=== PATIENT | female | born 1985 | race Two or more races ===

== ENCOUNTER 2017-11-20 10:41 | Emergency (ER) | payer SELFPAY ==
[~2017-11-20 10:41] MED LIST: ACET-1311 PO; IBUP-1050 PO; NORG1TAB68 PO
[2017-11-20 10:45] VITALS: BP 108/69; PULSE 79; TEMP 36.6; O2SAT 98
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
== END 2017-11-20 11:46 | disposition home or self-care (01) ==
LOC: C.EDB 10:43 → C.EDD 11:46
DX: S01.81XD Laceration without foreign body of other part of head, subsequent encounter (principal); X58.XXXD Exposure to other specified factors, subsequent encounter

== ENCOUNTER 2024-01-12 07:43 | Inpatient (IN) ==
[2024-01-12] MEDS ORDERED: OXYTOCIN 30 UNITS/NSS 30 UNITS/500 ML BAG IV PRN (08:11)
[2024-01-12] MEDS ORDERED: LIDOCAINE 1% LOCAL 20 ML VIAL INFIL PRN (08:11)
[2024-01-12] MEDS ORDERED: CALCIUM CARBONATE 500 MG CHEWABLE TAB PO PRN (08:11)
--- NOTE | 2024-01-12 08:18 | History & Physical Report ---
Date of Service January 12, 2024 Assessment & Plan (1) Encounter for induction of labor: Plan: Pitocin Sanz: AROM when indicated Monitor tracing: Admission and Anticipated Discharge Date Admission Date: January 12, 2024 History of Present Illness Chief Complaint: induction of labor Primary Care Provider: [facility] Patient is a 38yo G_P_ at _w_d admitted for IOL. States her has been uneventful Denies any complications with prior pregnancies or deliveries. No significant past medical or surgical history. Denies any recent fever, body aches, chills, headache, dizziness, n/v/d, SOB, chest pain, abdominal pain, vaginal bleeding, numbness/tingling, or pain/swelling of lower extremities. GBS-, RH+ Allergies Allergy/AdvReac Type Severity Reaction Status Date / Time No Known Allergies Allergy NONE Verified 01/11/24 14:48 Home Medications Medication Instructions Recorded Confirmed Type calcium 600 mg (as 1 cap PO DAILY 05/27/23 01/11/24 History carbonate)-vitamin D3 10 mcg (400 unit) capsule bsjhedes-cyh-Op-FA PO 05/29/23 01/11/24 History [] Patient History Medical History Varicella vaccine Constipation Family History Denies family history of Ovarian cancer Prostate cancer Breast cancer Colorectal cancer Social History Smoking Status: Never smoker Second Hand Exposure: No; Do You Dip or Chew Tobacco: No; Hx Alcohol Use: No Hx Substance Use: No Preferred Language: Rwandan Communication Tools: IPad marital status: marital status details: Emery Reyes [phone] Current Living Situation: Spouse and Family Current Living Situation Comment: Lives with , 2 kids, no pets. current occupational status: unemployed Feels Safe at Home: Yes Review of Systems per HPI Physical Exam Physical Exam: General: Skin: HEENT: Heart: Lungs: Abd: Cervical: Ext: Neuro: : Results & Data Vital Signs (Past 12 Hours) Vital Signs Pulse BP 01/12/24 08:05 68 148/90 H
--- NOTE | 2024-01-12 08:26 | History & Physical Report ---
Date of Service January 12, 2024 Assessment & Plan (1) Encounter for induction of labor: (2) 40 weeks gestation of : Plan admit for iol. fetus category one. anticipate . pitocin, arom when indicated, epidural on demand. Admission and Anticipated Discharge Date Admission Date: January 12, 2024 History of Present Illness Chief Complaint: iol Primary Care Provider: [facility] Patient is a 38yohf with iup at 40 1/7 who presents to labor and delivery for iol for postdates. Notes +fm. Occasional contractions. no lof/vb. and Delivery Plans AMA weekly NSTs @ 36 weeks Needs business and marketing teacher. OB Labs: Blood Type O Positive 06/04/23 Antibody Screen NEGATIVE 06/04/23 Hgb 11.3 g/dl (12.0-16.0) L 10/29/23 Hct 33.3 % (37.0-47.0) L 10/29/23 MCV 86.3 fL (80.0-100.0) 10/29/23 Plt Count 167 K/uL (130-400) 10/29/23 Rubella IgG Antibody Immune (Immune) 06/04/23 RPR Nonreactive (Nonreactive) 06/04/23 Hep Bs Antigen NON-REACTIVE (NON-REACTIVE) 06/04/23 Hepatitis C Ab (EIA) NON-REACTIVE (NON-REACTIVE) 06/04/23 HIV (1&2) Ag & Ab Conf NON-REACTIVE (NON-REACTIVE) 06/04/23 Glucose 1 Hr 50 gm 123 mg/dl (70-130) 10/12/23 OB Optional Labs: Chlamydia trachomatis RNA Not Detected (NotDetected) 06/04/23 Neisseria gonorrhoeae RNA Not Detected (NotDetected) 06/04/23 Labs Reviewed: Declines genetics--mln gbs neg Allergies Allergy/AdvReac Type Severity Reaction Status Date / Time No Known Allergies Allergy NONE Verified 01/11/24 14:48 Home Medications Medication Instructions Recorded Confirmed Type calcium 600 mg (as 1 cap PO DAILY 05/27/23 01/11/24 History carbonate)-vitamin D3 10 mcg (400 unit) capsule ivigsqgq-kbm-Nq-FA PO 05/29/23 01/11/24 History [] Patient History Medical History Varicella vaccine Constipation Family History Denies family history of Ovarian cancer Prostate cancer Breast cancer Colorectal cancer Social History Smoking Status: Never smoker Second Hand Exposure: No; Do You Dip or Chew Tobacco: No; Hx Alcohol Use: No Hx Substance Use: No Preferred Language: [place] Communication Tools: IPad marital status: marital status details: Emery Reyes [phone] Current Living Situation: Spouse and Family Current Living Situation Comment: Lives with , 2 kids, no pets. current occupational status: unemployed Feels Safe at Home: Yes OB History Past Pregnancies Del. Date GA wks Lbr Lgth wt Sex Type del Anes Place Del Prov ? Comment 04/04/05 40 M Other [place] 07/24/08 40 M [facility] [employer] History noncontributory Physical Exam Constitutional: WD/WN, vitals as above Gastrointestinal (Abdomen): soft, gravid, nt Psychiatric: A+Ox3, euthymic affect Genitourinary: cx--4/75/-2/soft/mid toco--occasional contraction efm--130s with mod variability, small accels , no decels. Results & Data Vital Signs (Past 12 Hours) Vital Signs Pulse BP 01/12/24 08:05 68 148/90 H Coding Level of Care Code None Diagnoses Encounter for induction of labor Z34.90 40 weeks gestation of Z3A.40
[2024-01-12] MEDS: OXYTOCIN 30 UNITS/NSS 30 UNITS/500 ML BAG IV PRN ×2 (09:00→17:55)
[2024-01-12 09:22] LABS: Hematocrit (blood only) 36.7 % (37.0-47.0); Hemoglobin 12.8 g/dl (12.0-16.0); Mean Platelet Volume 13.3 fL (9.4-12.4); Platelet Count 115 K/uL (130-400)
[2024-01-12 09:23] LABS: Mean Corpuscular Hgb Conc 34.9 g/dL (32.0-36.0); Mean Corpuscular Volume 83.2 fL (80.0-100.0); RDW Coefficient of Variation 14.5 % (11.5-14.5); RDW Standard Deviation 42.6 fL (36.4-46.3); Red Blood Count 4.41 M/uL (4.20-5.40)
[2024-01-12 09:31] LABS: White Blood Count 5.27 K/ul (4.8-10.8)
--- NOTE | 2024-01-12 10:11 | Communication Note ---
Date of Service: January 12, 2024 Nursing made me aware of mildly elevated blood pressures. No s/s of pet. Check cmp and monitor closely.
[2024-01-12 10:38] LABS: Albumin Level 3.2 gm/dl (3.4-5.0); Bilirubin,Total 0.4 mg/dl (0.2-1.0); Calcium 8.6 mg/dl (8.6-10.3); Potassium 3.4 mmol/L (3.5-5.1)
[2024-01-12 10:44] LABS: Albumin Globulin Ratio 1.2 (0.9-2); BUN Creatinine Ratio 14.1 (10-20); Creatinine Clr Calc Pharmacy 114.1 ml/min; Globulin 2.6 gm/dl (2.5-4.0); Total Protein 5.8 gm/dl (6.0-8.3)
[2024-01-12] MEDS: LACTATED RINGER'S 1,000 ML IV PRN (11:15)
[2024-01-12] MEDS ORDERED: NALBUPHINE HCL INJ 10 MG/ML AMP IV PRN (11:24)
[2024-01-12] MEDS ORDERED: LIDOCAINE 2% MPF LOCAL 5 ML VIAL EPI PRN (11:24)
[2024-01-12] MEDS ORDERED: fentANYL 2 MCG/ML BUPIVacaine 0.125%-NSS 100ML BAG EPI PRN (11:24)
[2024-01-12] MEDS ORDERED: ROPIVACAINE 0.5% PF 5 MG/ML 20 ML VIAL EPI PRN (11:24)
[2024-01-12] MEDS ORDERED: SODIUM CHLORIDE 0.9% PF INJ 10 ML VIAL EPI PRN (11:24)
[2024-01-12] MEDS ORDERED: NALOXONE HCL 1 MG in SODIUM CHLORIDE 0.9% 1,000 ML IV PRN (11:24)
[2024-01-12] MEDS ORDERED: fentaNYL citrate PF 100 MCG/2 ML VIAL EPI PRN (11:24)
[2024-01-12] MEDS ORDERED: NALOXONE HCL 0.4 MG/1 ML VIAL/CARP IV PRN (11:24)
[2024-01-12] MEDS ORDERED: ePHEDrine sulfate 50 MG/ML AMP IV PRN (11:24)
[2024-01-12] MEDS ORDERED: diphenhydrAMINE 50 MG/ML VIAL IV PRN (11:24)
[2024-01-12] MEDS ORDERED: BUPIVACAINE 0.25% PF 30 ML VIAL EPI PRN (11:24)
--- NOTE | 2024-01-12 11:24 | Anesthesiology Consultation ---
Date of Service January 12, 2024 Assessment & Plan Chart Review Chart Review: Acceptable Risk for Labor Epidural Consults Requested none History Height/Weight Height: 5 ft 1 in Weight: 78.471 kg Allergies Allergy/AdvReac Type Severity Reaction Status Date / Time No Known Allergies Allergy NONE Verified 01/12/24 08:41 Medications Home Medications Medication Instructions Recorded Confirmed Last Taken calcium 600 mg (as 1 cap PO DAILY 05/27/23 01/11/24 05/27/23 carbonate)-vitamin D3 10 mcg (400 unit) capsule siixixhg-xju-Oa-FA 1 tab PO 05/29/23 01/11/24 01/11/24 08:00 [] Active Medications Generic Name Dose Route Start Last Admin Trade Name Freq PRN Reason Stop Dose Admin Lactated Ringer's 1,000 mls @ 125 mls/hr 01/12/24 08:11 01/12/24 11:15 Lr IV 01/14/24 08:10 999 mls/hr .Q8H PRN Administration L&D Protocol Protocol Oxytocin 30 units in 500 mls @ 10 mls/hr 01/12/24 08:25 01/12/24 11:10 Pitocin 30 Units/Nss IV 01/14/24 08:24 0.6 units/hr .Q24H PRN 10 mls/hr Labor Induction/Augmentation Titration Protocol 0.6 UNITS/HR Past Medical History Medical History Varicella vaccine Constipation Past Family History Family History Denies family history of Ovarian cancer Prostate cancer Breast cancer Colorectal cancer Social History Smoking Status: Never smoker Do You Dip or Chew Tobacco: No Hx Alcohol Use: No Hx Substance Use: No substance use type: does not use Physical Exam Vital Signs Last Vital Signs Temp 36.5 C 01/12/24 08:00 Pulse 69 01/12/24 11:21 Resp 20 01/12/24 08:00 BP 156/85 H 01/12/24 11:21 Constitutional WD/WN, vitals as above Psychiatric A+Ox3, euthymic affect Testing Laboratory Results 01/12/24 08:28 01/12/24 08:28
[2024-01-12] MEDS: LIDOCAINE 2%/EPINEPHRINE 1:200,000 20 ML PF ONE (11:50)
[2024-01-12] MEDS: fentANYL 2 MCG/ML BUPIVacaine 0.125%-NSS 100ML BAG ONE (11:50)
--- NOTE | 2024-01-12 12:46 | Labor Progress Brief Note ---
Date of Service January 12, 2024 Subjective comfortable with epidural Assessment & Plan (1) 40 weeks gestation of : (2) Encounter for induction of labor: Plan continue current management. fetus category one. anticipate . Admission and Anticipated Discharge Date Admission Date: January 12, 2024 Physical Exam Physical Exam: cx--/-2 arom--clear toco--q2-3, pit at 14 efm--130s wtih mod variability, accels to 160s, no decels Results & Data Vital Signs (Past 12 Hours) Vital Signs Temp Pulse Resp BP Pulse Ox 01/12/24 12:42 75 100 01/12/24 12:41 64 147/93 H 01/12/24 12:37 68 100 01/12/24 12:32 80 100 01/12/24 12:27 73 99 01/12/24 12:26 74 153/78 H 01/12/24 12:22 74 99 01/12/24 12:17 80 100 01/12/24 12:12 79 100 01/12/24 12:10 78 138/68 01/12/24 12:07 82 99 01/12/24 12:02 82 100 01/12/24 11:57 83 100 01/12/24 11:55 86 137/71 01/12/24 11:52 85 100 01/12/24 11:51 80 144/70 H 01/12/24 11:47 76 100 01/12/24 11:21 69 156/85 H 01/12/24 09:59 64 153/77 H 01/12/24 09:08 71 127/83 01/12/24 08:56 68 153/90 H 01/12/24 08:44 74 169/92 H 01/12/24 08:05 68 148/90 H 01/12/24 08:00 36.5 C 20 Coding Level of Care Code None Diagnoses 40 weeks gestation of Z3A.40 Encounter for induction of labor Z34.90
--- NOTE | 2024-01-12 14:55 | Labor Progress Brief Note ---
Date of Service January 12, 2024 Subjective comfortable Assessment & Plan (1) 40 weeks gestation of : (2) Encounter for induction of labor: Plan begin second stage soon. Fetus category 2 but reassuring. anticipate . Admission and Anticipated Discharge Date Admission Date: January 12, 2024 Physical Exam Physical Exam: cx--ant lip/0 toco--q2, pit at 14 efm--120s with mod varaiability, small accels, variable/early with contractions Results & Data Vital Signs (Past 12 Hours) Vital Signs Temp Pulse Resp BP Pulse Ox 01/12/24 14:52 73 99 01/12/24 14:47 66 98 01/12/24 14:42 66 100 01/12/24 14:41 65 160/82 H 01/12/24 14:37 73 98 01/12/24 14:34 70 92 01/12/24 14:32 72 100 01/12/24 14:30 36.6 C 20 01/12/24 14:27 65 100 01/12/24 14:26 70 163/84 H 01/12/24 14:22 66 100 01/12/24 14:17 78 100 01/12/24 14:12 75 99 01/12/24 14:11 71 157/88 H 01/12/24 14:07 68 100 01/12/24 14:02 65 99 01/12/24 13:57 75 98 01/12/24 13:56 63 158/85 H 01/12/24 13:52 67 99 01/12/24 13:47 74 99 01/12/24 13:42 73 97 01/12/24 13:41 67 154/76 H 01/12/24 13:37 67 98 01/12/24 13:32 69 97 01/12/24 13:27 67 97 01/12/24 13:26 67 145/80 H 01/12/24 13:22 67 96 01/12/24 13:17 69 97 01/12/24 13:12 70 98 01/12/24 13:11 68 148/72 H 01/12/24 13:07 68 98 01/12/24 13:02 70 98 01/12/24 13:00 18 01/12/24 13:00 36.5 C 18 01/12/24 12:57 68 99 01/12/24 12:56 63 137/74 01/12/24 12:52 69 100 01/12/24 12:47 70 100 01/12/24 12:42 75 100 01/12/24 12:41 64 147/93 H 01/12/24 12:37 68 100 01/12/24 12:32 80 100 01/12/24 12:27 73 99 01/12/24 12:26 74 153/78 H 01/12/24 12:22 74 99 01/12/24 12:17 80 100 01/12/24 12:12 79 100 01/12/24 12:10 78 138/68 01/12/24 12:07 82 99 01/12/24 12:02 82 100 01/12/24 11:57 83 100 01/12/24 11:55 86 137/71 01/12/24 11:52 85 100 01/12/24 11:51 36.4 C L 80 18 144/70 H 01/12/24 11:47 76 100 01/12/24 11:21 69 156/85 H 01/12/24 09:59 64 153/77 H 01/12/24 09:08 71 127/83 01/12/24 08:56 68 153/90 H 01/12/24 08:44 74 169/92 H 01/12/24 08:05 68 148/90 H 01/12/24 08:04 36.5 C 01/12/24 08:00 36.5 C 20 Coding Level of Care Code None Diagnoses 40 weeks gestation of Z3A.40 Encounter for induction of labor Z34.90
[2024-01-12] MEDS: ACETAMINOPHEN 500 MG TAB PO PRN (15:34)
[2024-01-12] MEDS: miSOPROStoL 200 MCG TAB PR ONE (16:00)
[2024-01-12] MEDS: fentaNYL citrate PF 100 MCG/2 ML VIAL ONE (16:14)
[2024-01-12] MEDS: ePHEDrine sulfate 50 MG/ML AMP ONE (16:14)
[2024-01-12] MEDS: BUPIVACAINE 0.25% PF 30 ML VIAL ONE (16:15)
[2024-01-12] MEDS: BUPIVACAINE 0.25% PF 30 ML VIAL EPI STA (16:17)
[2024-01-12] MEDS: SODIUM CHLORIDE 0.9% PF INJ 10 ML VIAL ONE (16:17)
[2024-01-12] MEDS: fentaNYL citrate PF 100 MCG/2 ML VIAL EPI STA (16:17)
[2024-01-12] MEDS: LIDOCAINE 2%/EPINEPHRINE 1:200,000 20 ML PF EPI STA (16:18)
[2024-01-12] MEDS: SODIUM CHLORIDE 0.9% PF INJ 10 ML VIAL EPI STA (16:18)
--- NOTE | 2024-01-12 16:19 | Delivery Summary ---
Vaginal Delivery Summary Date of Service January 12, 2024 Vaginal Delivery Summary [facility] Pre-operative Diagnosis: at 40 1/7 postdates iol Post-operative Diagnosis: same shoulder dystocia Procedure: pitocin induction epidural arom QBL: 230cc Anesthesia: epidural Procedure: Patient admitted to labor and delivery for iol. Cervix favorable. Pitocin started. Received epidural. arom for clear fluid. Patient progressed to c/c/+1. The patient pushed for 10 min to deliver a viable male infant in LACIE position. Attempt to deliver the anterior left shoulder was not successful. Shoulder dystocia noted. Patient laid flat with Arsen and suprapubic pressure applied. Shoulder still did not deliver. Operators hand placed posteriorly and the posterior arm unable to be delivered. The right shoulder was then rotated to the patient's left. Then with Arsen and suprapubic pressure the anterior shoulder was delivered and the rest of the baby was immediately delivered. NO undue traction used in delivery. Dystocia lasted for less than 30 secs. The nose and mouth were bulb suctioned and the infant was placed in the maternal abdomen for drying and attention. Cord was clamped and cut. Cord blood and segment obtained. Placenta delivered spontaneous, intact with a three vessel cord. Cervix/sulci/rectum/perineum were intact. Hemostasis obtained with dilute pitocin and fundal massage. Apgars were 8/8. Mother and baby doing well at the end of the delivery. [facility] [place] Vaginal Delivery Charge Delivery Type Details: [facility]
[2024-01-12] MEDS ORDERED: ACETAMINOPHEN 325 MG TAB PO PRN (16:30)
[2024-01-12] MEDS ORDERED: BENZOCAINE 20% SPRY 85 APPLN/85 GM CAN EXT PRN (16:30)
[2024-01-12] MEDS ORDERED: bisacodyL 10 MG SUPP PR PRN (16:30)
[2024-01-12] MEDS ORDERED: HYDROCORTISONE ACETATE 25 MG SUPP PR PRN (16:30)
[2024-01-12] MEDS: DIPHTHER/TETAN/PERTUS Vaccine (Tdap, Adol/Adult) 0.5mL IM ONE (16:37)
[2024-01-12] MEDS: METHYLERGONOVINE MALEATE 0.2 MG/ML AMP ONE (17:34)
--- NOTE | 2024-01-12 18:06 | Communication Note ---
Date of Service: January 12, 2024 [facility] because of concern for bleeding. Nursing noted 266 additional blood in the first hour and then noting soaked chux over next 30 mins. Vitals are stable. I performed and manual exam and removed a large amount of clot from the uterus. Uterus seemed to firm but then with additional massage noted a gush of blood. Called for a Natali. Informed the patient of what we were doing. Natali placed into the uterus. Balloon filled with 120cc of sterile water. Suction at 80mmHg connected to the Natali. Got minimal blood return and fundus firm. Will continue to monitor closely. Another bad of pitocin hung. Had previously given cytotec 800mcg pr after delivery. Sanz will be placed. Stat labs.
[2024-01-12] MEDS ORDERED: ceFAZolin 500 MG in SYRINGE 0 ML IV SCH (18:15)
[2024-01-12] MEDS: oxyCODONE/ACETAMINOPHEN 5mg/325mg TAB PO PRN (18:15)
[2024-01-12] MEDS: TRANEXAMIC ACID / 0.7% NACL 1,000 MG/100 ML BAG IV STA (18:24)
--- NOTE | 2024-01-12 18:30 | Communication Note ---
Date of Service: January 12, 2024 Reevaluating after 30 min. Blood has not quite filled up the tubing (full tubing into the canister is 100cc). Vitals stable. Total blood loss to this p oint is approximately 1400cc. Second bag of 500cc with pit is in. When flat, uterus if firm and 1-2 above the umbilicus. Sanz draining >600cc urine. Plan to continue to monitor closely. h/h pending. Will give TXA. Then will run low dose pitocin.
[2024-01-12] MEDS: OXYTOCIN 20 UNITS/1002ML LR IV ONE (18:39)
[2024-01-12 19:02] LABS: Hematocrit (blood only) 32.3 % (37.0-47.0); Hemoglobin 11.2 g/dl (12.0-16.0); Mean Corpuscular Hemoglobin 29.1 pg (25.0-34.0); Mean Corpuscular Hgb Conc 34.7 g/dL (32.0-36.0); Mean Corpuscular Volume 83.9 fL (80.0-100.0); Mean Platelet Volume 12.6 fL (9.4-12.4); Platelet Count 100 K/uL (130-400); RDW Coefficient of Variation 14.6 % (11.5-14.5); RDW Standard Deviation 44.1 fL (36.4-46.3); Red Blood Count 3.85 M/uL (4.20-5.40)
[2024-01-12] MEDS: ceFAZolin 1000MG 1,000 MG/7.5 ML SYR IV SCH (19:03)
[2024-01-12] MEDS: OXYTOCIN 20 UNITS in LACTATED RINGER'S 1,000 ML IV SCH ×2 (19:20→23:55)
[2024-01-12] MEDS: BUTORPHANOL TARTRATE 2 MG/ML VIAL ONE (19:25)
[2024-01-12] MEDS: CARBOPROST TROMETHAMINE 250 MCG/ML AMPUL IM ONE (19:38)
[2024-01-12] MEDS ORDERED: SODIUM CHLORIDE 0.9% 250 ML IV PRN (19:54)
--- NOTE | 2024-01-12 20:05 | Communication Note ---
Date of Service: January 12, 2024 We are now 1.5 hours from balloon placement. Tubing full and 50cc in the canister. The uterus is now 3-4 above the umbilicus. Vitals are still stable. Just having a slow amount of blood loss and concerned about clot in the uterus. Gave IM hemabate. Lowered the balloon and pushed very hard on the uterus. No clot or gush of blood noted. The balloon had been drained for this. Decided to remove. Explored the uterus with minimal clot removed and minimal blood noted. Attempt to replace Natali failed. Patient received stadol 1mg prior to this p rocedure. Will now monitor very closely and transfuse 2 U. I have spoken with Dr. Arreola regarding the patient and the situation. plts started at 115 and now down to 110. h/h started at 12.8/36.7 and was 11.2/32.3 at 6:24 pm. I used the traffic rate clerk to explain the situation to the patient , what had happened, and what could possibly happen including hyster if unable to control bleeding. Discussed r/b/se of transfusion with the traffic rate clerk including wrong type, viral infections, fever , chills, lung issues. Blood loss at this point is now greater than 1700cc and she is very likely to need transfusion and with potential to go to the OR, want to start now.
[2024-01-12] MEDS: MoRPHine SULFATE 2 MG/ML CARP IV STA (20:23)
--- NOTE | 2024-01-12 20:59 | Communication Note ---
Date of Service: January 12, 2024 Patient resting , notes very crampy. Pushed on the uterus, very firm at u not more than one above. Minimal blood noted on ice pack and scant blood with palpation. Vitals stable. Will continue to monitor closely. First unit of blood hanging. Sanz draining clear urine. she has been hypertensive so will give one dose of labetolol
[2024-01-12] MEDS: LABETALOL HCL IV 5 MG/ML 20ML IV STA ×3 (21:10→22:25)
[2024-01-12] MEDS: BUTORPHANOL TARTRATE 2 MG/ML VIAL IV ONE (21:19)
[2024-01-12] MEDS ORDERED: NIFEdipine EXTENDED REL 30 MG TABCR PO STA (22:15)
--- NOTE | 2024-01-12 22:20 | Communication Note ---
Date of Service: January 12, 2024 Patient is sleeping. She is having elevated blood pressures in the low 160s/90- 100. Is asymptomatic. Her bleeding is scant and fundus super firm around u. Sanz draining. Want to try to stay away from Mag as we just got her bleeding under control and I don't want to do anything to compromise this. Will continue to monitor closely. Consider adding po nifedipine. Get labs now.
[2024-01-12 23:20] LABS: Albumin Globulin Ratio 1.1 (0.9-2); Albumin Level 2.5 gm/dl (3.4-5.0); BUN Creatinine Ratio 17.3 (10-20); Bilirubin,Total 0.5 mg/dl (0.2-1.0); Calcium 7.7 mg/dl (8.6-10.3); Creatinine Clr Calc Pharmacy 140.5 ml/min; Globulin 2.3 gm/dl (2.5-4.0); Potassium 3.8 mmol/L (3.5-5.1); Total Protein 4.8 gm/dl (6.0-8.3)
[2024-01-12 23:30] LABS: Hematocrit (blood only) 34.7 % (37.0-47.0); Hemoglobin 12.2 g/dl (12.0-16.0); Mean Corpuscular Hemoglobin 29.3 pg (25.0-34.0); Mean Corpuscular Hgb Conc 35.2 g/dL (32.0-36.0); Mean Corpuscular Volume 83.4 fL (80.0-100.0); Mean Platelet Volume 12.6 fL (9.4-12.4); Platelet Count 93 K/uL (130-400); Platelet Estimate Decreased (Normal); RDW Coefficient of Variation 14.8 % (11.5-14.5); RDW Standard Deviation 44.8 fL (36.4-46.3); Red Blood Count 4.16 M/uL (4.20-5.40); White Blood Count 8.69 K/ul (4.8-10.8)
--- NOTE | 2024-01-12 23:34 | Communication Note ---
Date of Service: January 12, 2024 Spoke with the patient using the chucking and sawing machine operator. continues to have elevated blood pressures 160-170/90-110. She seems to be lying in bed comfortably, but notes she feels pain all over and also in her abdomen. Bleeding is scant and uterus firm. Making good uop. dtrs nl, no clonus and she has no s/s or complaints of peeclampsia sx. Pressures have not really responded to labetolol. Given elevated pressures, cannot r/o pp pet/ghtn, so recommend mag prophylaxis. Explained this in detail to the patient and the concern of seizure/eclampsia. She consents to mag. blood is just finishing now. Got stat labs. cmp is wnl, na 135, c java developer 0.52, ast/alt wnl. plts 93, h/h 12.2/34.7 (I suspect this to further decrease as she equilibrates). After mag bolus, will treat bps as indicated.
[2024-01-12] MEDS: MAGNESIUM SULFATE / WTR 40 GM/1,000 ML BAG IV SCH (23:55)
[2024-01-12] MEDS: MAG SULFATE 4GM BOLUS FROM BAG IV ONE (23:55)
[2024-01-13] MEDS: MEPERIDINE HCL 25 MG/ML CARP/VIAL IV PRN
[2024-01-13 00:07] LABS: Base Excess Cord Arterial Bld -1.8 mEq/L (-9-1.8); Base Excess Cord Venous Blood -2.1 mEq/L (-7.7-1.9); CO2 Cord Arterial Blood 50 mmHg (39.1-73.5); Cord Venous Blood HCO3 22 mmol/L (18.4-26.8); Cord Venous Blood PCO2 37 mmHg (30.4-57.2); Cord Venous Blood PO2 47 mmHg (14.1-43.3); Cord Venous Blood pH 7.39 (7.20-7.44); HCO3 Cord Arterial Blood 25 mmol/L (19.7-28.5); O2 Saturation Cord Venous Bld 89.8 % (<68); Oxygen Sat Cord Arterial Blood 70.3 % (<60); PO2 Cord Arterial Blood 33 mmHg (4.1-31.7); pH Cord Arterial Blood 7.31 (7.1-7.38)
[2024-01-13] MEDS: DOCUSATE SODIUM 100 MG CAP PO SCH (00:48)
[2024-01-13] MEDS: CARBOPROST TROMETHAMINE 250 MCG/ML AMPUL ONE (03:22)
[2024-01-13 03:57] LABS: Hematocrit (blood only) 39.1 % (37.0-47.0); Hemoglobin 13.4 g/dl (12.0-16.0); Mean Corpuscular Hemoglobin 28.6 pg (25.0-34.0); Mean Corpuscular Hgb Conc 34.3 g/dL (32.0-36.0); Mean Corpuscular Volume 83.4 fL (80.0-100.0); Mean Platelet Volume 11.9 fL (9.4-12.4); Platelet Count 84 K/uL (130-400); RDW Coefficient of Variation 15.9 % (11.5-14.5); RDW Standard Deviation 47.2 fL (36.4-46.3); Red Blood Count 4.69 M/uL (4.20-5.40); White Blood Count 9.82 K/ul (4.8-10.8)
[2024-01-13 04:16] LABS: Albumin Level 2.6 gm/dl (3.4-5.0); BUN Creatinine Ratio 13.7 (10-20); Bilirubin,Total 0.6 mg/dl (0.2-1.0); Calcium 7.8 mg/dl (8.6-10.3); Creatinine Clr Calc Pharmacy 100.1 ml/min; Globulin 2.5 gm/dl (2.5-4.0); Potassium 4.5 mmol/L (3.5-5.1); Total Protein 5.1 gm/dl (6.0-8.3)
[2024-01-13] MEDS: OXYTOCIN 20 UNITS in LACTATED RINGER'S 1,000 ML IV SCH (05:18)
[2024-01-13 06:28] LABS: Hematocrit (blood only) 38.8 % (37.0-47.0); Hemoglobin 13.6 g/dl (12.0-16.0)
--- NOTE | 2024-01-13 06:38 | Obstetrical Progress Note ---
Date of Service <Asael Jernigan DO - Last Filed: 01/13/24 07:02> January 13, 2024 Assessment & Plan <Asael Jernigan DO - Last Filed: 01/13/24 07:02> (1) state: 38yo day 1 following In pain (abd and head) and not feeling very well today, VSS Continue receiving mag Continue care Bottle feeding baby as pt not tolerating yet Pain control Hgb: 13.6, up from 12.2 yesterday Discuss discharge home at a later time <Jane Baker MD, FACOG - Last Filed: 01/13/24 07:53> (1) state: Subjective <Asael Jernigan DO - Last Filed: 01/13/24 07:02> Patient is a 38yo day 1 following Has been having pain in abdomen + headache since last night, on mag. Ambulation: no Voiding: no Passing gas: denies Diet tolerance: not tolerating yet Lochia: small Feeding type: intends to breastfeed, but has been giving bottle to baby since pt not feeling well Current pain: "mucho" abdomen, head Patient in moderate distress. Denies fever, body aches, chills, SOB, n/v/d, LE pain/swelling. Review of Systems as above Physical Exam <Asael Jernigan DO - Last Filed: 01/13/24 07:02> General: A&Ox4, patient in moderate distress, appearing tired Skin: warm, dry, intact HEENT: NC/AT, anicteric sclerae, conjunctive w/o injection Heart: RRR, no m/r/g Lungs: clear to auscultation b/l, equal air entry, no wheezing, rales, rhonchi Abd: hypoactive bowel sounds, generalized tenderness to palpation, firm but not tense, no guarding Ext: no erythema, swelling, or tenderness to palpation; Fatoumata's neg, no clubbing or cyanosis Neuro: speech intact, no facial droop, moving all ext on command and spontaneously Results & Data <Asael Jernigan DO - Last Filed: 01/13/24 07:02> Vital Signs (Past 12 Hours) Vital Signs Temp Pulse Resp BP Pulse Ox 10/16/24 06:27 78 116/63 01/13/24 06:26 80 94 01/13/24 06:24 77 94 01/13/24 06:21 80 93 01/13/24 06:16 78 94 01/13/24 06:12 76 111/60 01/13/24 06:11 79 94 01/13/24 06:06 78 94 01/13/24 06:01 76 94 01/13/24 06:00 75 94 01/13/24 05:57 75 18 120/65 01/13/24 05:56 75 94 01/13/24 05:54 76 94 01/13/24 05:51 80 95 01/13/24 05:46 75 94 01/13/24 05:42 73 116/63 01/13/24 05:41 77 94 01/13/24 05:36 76 94 01/13/24 05:31 75 95 01/13/24 05:28 76 94 01/13/24 05:27 78 130/85 01/13/24 05:26 80 95 01/13/24 05:21 81 95 01/13/24 05:17 78 94 01/13/24 05:16 79 94 01/13/24 05:12 75 131/80 01/13/24 05:11 75 95 01/13/24 05:09 76 94 01/13/24 05:06 77 96 01/13/24 05:02 81 94 01/13/24 05:01 77 94 01/13/24 05:00 18 01/13/24 04:57 77 18 121/65 01/13/24 04:56 77 94 01/13/24 04:51 94 01/13/24 04:51 80 01/13/24 04:51 79 94 01/13/24 04:46 78 94 01/13/24 04:45 76 94 01/13/24 04:42 78 123/65 01/13/24 04:41 77 94 01/13/24 04:36 79 94 01/13/24 04:34 79 94 01/13/24 04:31 80 94 01/13/24 04:27 80 122/68 01/13/24 04:26 79 94 01/13/24 04:25 80 94 01/13/24 04:21 79 94 01/13/24 04:16 79 94 01/13/24 04:15 79 94 01/13/24 04:12 80 125/67 01/13/24 04:11 80 94 01/13/24 04:08 79 94 01/13/24 04:06 77 94 01/13/24 04:05 18 01/13/24 04:03 79 94 01/13/24 04:01 80 94 01/13/24 03:57 78 18 119/66 01/13/24 03:56 80 95 01/13/24 03:55 77 94 01/13/24 03:51 78 94 01/13/24 03:50 78 94 01/13/24 03:46 78 94 01/13/24 03:43 79 94 01/13/24 03:42 76 128/78 01/13/24 03:41 78 95 01/13/24 03:36 77 95 01/13/24 03:31 78 95 01/13/24 03:27 77 137/82 94 01/13/24 03:26 80 95 01/13/24 03:21 78 95 01/13/24 03:16 79 95 01/13/24 03:12 80 127/72 01/13/24 03:11 79 95 01/13/24 03:08 82 94 01/13/24 03:06 80 95 01/13/24 03:01 81 94 01/13/24 03:00 18 01/13/24 02:57 36.5 C 77 18 130/70 01/13/24 02:56 80 95 01/13/24 02:51 80 95 01/13/24 02:46 84 95 01/13/24 02:44 82 94 01/13/24 02:42 77 126/68 01/13/24 02:41 81 95 01/13/24 02:38 81 94 01/13/24 02:36 81 95 01/13/24 02:33 81 94 01/13/24 02:31 80 95 01/13/24 02:27 78 130/68 01/13/24 02:26 83 95 01/13/24 02:21 79 96 01/13/24 02:16 81 95 01/13/24 02:15 81 94 01/13/24 02:12 80 119/66 01/13/24 02:11 80 94 10/16/24 02:10 80 94 01/13/24 02:06 81 95 01/13/24 02:04 82 94 01/13/24 02:01 82 95 01/13/24 01:59 81 94 01/13/24 01:57 78 18 119/65 01/13/24 01:56 81 94 01/13/24 01:52 85 94 01/13/24 01:51 81 95 01/13/24 01:46 82 94 01/13/24 01:42 77 119/64 01/13/24 01:41 95 01/13/24 01:41 82 01/13/24 01:41 82 94 01/13/24 01:36 80 95 01/13/24 01:35 81 94 01/13/24 01:31 78 95 01/13/24 01:30 81 94 01/13/24 01:27 81 129/71 01/13/24 01:26 80 95 01/13/24 01:22 81 94 01/13/24 01:21 83 94 01/13/24 01:17 83 94 01/13/24 01:16 82 95 01/13/24 01:12 78 128/68 01/13/24 01:11 81 95 01/13/24 01:07 81 94 01/13/24 01:06 82 95 01/13/24 01:01 83 96 01/13/24 00:57 78 18 132/68 01/13/24 00:56 82 96 01/13/24 00:51 81 95 01/13/24 00:46 81 95 01/13/24 00:42 77 18 133/71 01/13/24 00:41 81 96 01/13/24 00:36 79 96 01/13/24 00:31 79 96 01/13/24 00:27 75 18 144/71 H 01/13/24 00:26 78 95 01/13/24 00:21 77 97 01/13/24 00:16 79 96 01/13/24 00:12 77 18 150/75 H 01/13/24 00:11 79 97 01/13/24 00:08 98 H 190/117 H 01/13/24 00:06 83 96 01/13/24 00:01 80 97 01/12/24 23:57 70 18 161/88 H 01/12/24 23:56 72 97 01/12/24 23:51 73 98 01/12/24 23:46 76 98 01/12/24 23:36 75 98 01/12/24 23:31 77 97 01/12/24 23:27 36.8 C 76 18 177/102 H 98 01/12/24 23:27 76 177/102 H 01/12/24 23:26 74 98 01/12/24 23:21 75 97 01/12/24 23:16 76 98 01/12/24 23:12 75 174/99 H 01/12/24 23:11 74 97 01/12/24 23:08 75 160/101 H 01/12/24 23:07 78 162/95 H 01/12/24 23:06 75 97 01/12/24 23:01 73 98 01/12/24 22:57 36.6 C 73 18 169/102 H 99 01/12/24 22:57 74 180/109 H 01/12/24 22:56 76 98 01/12/24 22:54 73 169/102 H 01/12/24 22:51 73 99 01/12/24 22:46 94 H 98 01/12/24 22:44 86 193/110 H 01/12/24 22:42 98 H 190/117 H 01/12/24 22:41 93 H 98 01/12/24 22:36 89 94 01/12/24 22:31 75 97 01/12/24 22:27 36.6 C 76 18 143/89 H 98 01/12/24 22:27 76 143/89 H 01/12/24 22:26 85 98 01/12/24 22:21 77 98 01/12/24 22:16 82 98 01/12/24 22:12 36.7 C 77 18 161/100 H 98 01/12/24 22:12 73 161/100 H 01/12/24 22:11 78 96 01/12/24 22:06 78 97 01/12/24 22:01 79 97 01/12/24 21:57 36.6 C 79 18 160/101 H 97 01/12/24 21:57 75 160/101 H 01/12/24 21:56 77 97 01/12/24 21:51 79 96 01/12/24 21:50 77 158/96 H 01/12/24 21:46 79 97 01/12/24 21:45 36.6 C 77 18 158/96 H 98 01/12/24 21:41 79 98 01/12/24 21:36 97 01/12/24 21:36 79 01/12/24 21:36 74 158/97 H 01/12/24 21:21 78 162/95 H 01/12/24 21:20 36.5 C 78 18 162/95 H 96 01/12/24 21:10 82 165/99 H 01/12/24 21:06 82 165/99 H 01/12/24 20:51 83 163/97 H 01/12/24 20:50 36.5 C 83 18 163/97 H 96 01/12/24 20:49 88 96 01/12/24 20:44 87 96 01/12/24 20:39 86 96 01/12/24 20:35 36.7 C 88 18 168/100 H 96 01/12/24 20:35 88 168/100 H 01/12/24 20:34 87 96 01/12/24 20:29 87 96 01/12/24 20:24 88 96 01/12/24 20:20 85 188/106 H 01/12/24 20:15 36.8 C 86 18 147/95 H 01/12/24 20:06 86 147/95 H 01/12/24 19:51 92 H 142/86 H 01/12/24 19:41 87 156/101 H 01/12/24 19:11 36.8 C 85 18 138/96 01/12/24 18:41 83 140/82 Medications Administered Docusate Sodium (Docusate Sodium 100 Mg Cap) 100 mg PO DAILY@08,21 RADHA Stop: 02/11/24 20:59 Last Admin: 01/13/24 00:48 Dose: Not Given Documented By: CNO Oxytocin (Pitocin 30 Units/Nss) 30 units in 500 mls @ 333.333 mls/hr IV .Q1H30M PRN; Protocol PRN Reason: Bleeding Control Stop: 02/11/24 16:29 Last Admin: 01/12/24 17:55 Dose: 59.94 units/hr, 999 mls/hr Documented By: CARRI Co-signed By: AB Cefazolin Sodium (Ancef 1000mg) 1,000 mg in 7.5 mls @ 2.5 mls/min IV Q8H RADHA Stop: 01/22/24 18:59 Last Admin: 01/13/24 03:10 Dose: 2.5 mls/min Documented By: Admin: 01/12/24 19:03 Dose: 2.5 mls/min Documented By: CARRI Magnesium Sulfate (Magnesium Sulfate / Wtr) 40 gm in 1,000 mls @ 50 mls/hr IV .Q20H RADHA Stop: 02/11/24 23:44 Last Infusion: 01/13/24 06:01 Dose: 50 mls/hr Documented By: JOSHUA Co-signed By: MTR Infusion: 01/13/24 05:00 Dose: 50 mls/hr Documented By: JOSHUA Co-signed By: MTR Infusion: 01/13/24 04:00 Dose: 50 mls/hr Documented By: JOSHUA Co-signed By: SR Infusion: 01/13/24 03:00 Dose: 50 mls/hr Documented By: JOSHUA Co-signed By: MTR Infusion: 01/13/24 01:54 Dose: 50 mls/hr Documented By: BECKO Co-signed By: MTR Infusion: 01/13/24 01:00 Dose: 50 mls/hr Documented By: JOSHUA Co-signed By: MTR Admin: 01/12/24 23:55 Dose: 50 mls/hr Documented By: CNCody Co-signed By: SR Oxytocin 20 units/ Lactated (Ringer's) 1,002 mls @ 75 mls/hr IV .[id number] RAHDA Stop: 01/13/24 16:21 Last Infusion: 01/13/24 06:01 Dose: 75 mls/hr Documented By: JOSHUA Co-signed By: MTR Infusion: 01/13/24 05:18 Dose: 75 mls/hr Documented By: JOSHUA Co-signed By: MTR Admin: 01/13/24 05:18 Dose: 75 mls/hr Documented By: CNO Co-signed By: FRAN Meperidine HCl (Meperidine Hcl 25 Mg/Ml Carp/Vial) 25 mg IV Q4 PRN PRN Reason: Pain Stop: 01/26/24 23:34 Last Admin: 01/13/24 05:10 Dose: 25 mg Documented By: Admin: 01/13/24 00:00 Dose: 25 mg Documented By: JOSHUA Oxycodone/Acetaminophen (Oxycodone/Acetaminophen 5mg/325mg Tab) 1 tab PO Q4H PRN PRN Reason: Pain not relieved by... Stop: 01/26/24 16:29 Last Admin: 01/12/24 22:28 Dose: 1 tab Documented By: Admin: 01/12/24 18:15 Dose: 1 tab Documented By: CARRI Supervising Physician <Jane Baker MD, FACOG - Last Filed: 01/13/24 07:53> Co-Signing Physician Notes Resident Physician Supervision Note: I interviewed and examined the patient. Discussed with Dr. Masters and agree with findings and plan as documented in the note. Any exceptions or clarifications are listed here: Patient is ppd 0 s/p complicated by shoulder dystocia, pph of 1700cc and now ghtn on mag. Patient notes she feels awful today. She notes that she hurts all over, very tired. Complains of garcia that she notes is a 9/10 and also abdominal pain. She denies vision changes, ruq pain. She notes she feels a little hungry. Bleeding has been small to scant overnight. abd--soft, no ruq tenderness ext--dtrs 2/2, no clonus. Labs at 3 am--h/h 13.6/38/8, plts 84, na 134, tax intern 0.73 Pressures much improved with mag, no s/s of toxicity. Good uop. I'm sure that the patient feels awful and very painful and sore given all of the manipulation, exploration and pushing on her abdomen we did to try to control her bleeding. Patient has been afebrile. Will allow clears now as bleeding much improved and stable. Treat pain as best we can wtih pain meds. Cont mag for 24 hour course. Repeat labs at 9am. Documented By: Jane Baker MD, FACOG Resident Activity Tracking <Asael Jernigan DO - Last Filed: 01/13/24 07:02> Resident Involvement: Resident Care Provided Care Provided: OB Delivery
[2024-01-13] MEDS: IBUPROFEN 600 MG TAB PO PRN (07:23)
[2024-01-13] MEDS: PRENATAL VITAMIN 1 TAB PO SCH (08:39)
--- NOTE | 2024-01-13 09:17 | Anesthesia Procedure Note ---
Date of Service January 13, 2024 Anesthesia Post Epidural Note Vital Signs Vital Signs: Temp Pulse Resp BP Pulse Ox 36.5 C 73 20 129/83 96 01/13/24 07:30 01/13/24 09:12 01/13/24 08:30 01/13/24 09:12 01/13/24 09:11 Pain Intensity Generalized: Pain Intensity: 7 Notes Mental Status: alert / awake / arousable Nausea / Vomiting: adequately controlled Pain: adequately controlled Airway Patency, RR, SpO2: stable & adequate BP & HR: stable & adequate Hydration State: stable & adequate Neuraxial Anesthesia: was administered and sensory block is resolving Anesthetic Complications: no major complications apparent and Pt Satisfied with anesthetic care Epidural: Removed without complications and With tip intact
[2024-01-13] MEDS: bisacodyL 5 MG TABEC PO SCH (21:54)
--- NOTE | 2024-01-14 06:30 | Obstetrical Progress Note ---
Date of Service <Asael Jernigan DO - Last Filed: 01/14/24 08:24> January 14, 2024 Assessment & Plan <Asael Jernigan DO - Last Filed: 01/14/24 08:24> (1) state: 38yo day 2 following Continues to have abdominal pain and swelling, still not feeling very well today, VSS - receiving Percocet and ibuprofen for pain Headache has gone away Continue care as tolerated, bottle when necessary Hgb: 13.6, up from 12.2 the day prior; no white count - CBC ordered for today 01/14/24 Possible discharge home tomorrow 01/15/24 <Justin Tang MD, FACOG - Last Filed: 01/15/24 10:10> (1) state: Subjective <Asael Jernigan DO - Last Filed: 01/14/24 08:24> 38yo day 2 following Ambulation: yes Voiding: urination, no BM Passing gas: a little Diet tolerance: improving, regular Lochia: small Feeding type: breast, bottle when necessary Current pain: still having significant lower abdominal pain Patient in moderate distress this AM. Denies fever, body aches, chills, headache, SOB, n/v/d, LE swelling/pain, or numbness/tingling. Review of Systems as above Physical Exam <Asael Jernigan DO - Last Filed: 01/14/24 08:24> General: A&Ox4, patient in moderate distress, appearing tired Skin: warm, dry, intact HEENT: NC/AT, anicteric sclerae, conjunctive w/o injection Heart: RRR, no m/r/g Lungs: clear to auscultation b/l, equal air entry, no wheezing, rales, rhonchi Abd: hypoactive bowel sounds, generalized abdominal swelling and tenderness to palpation, unable to palpate fundus due to pain, no tenseness or guarding Ext: no erythema, swelling, or tenderness to palpation; Fatoumata's neg, no clubbing or cyanosis Neuro: speech intact, no facial droop, moving all ext on command and spontaneously Results & Data <Asael Jernigan DO - Last Filed: 01/14/24 08:24> Vital Signs (Past 12 Hours) Vital Signs Temp Pulse Pulse Resp BP BP Pulse Ox 01/14/24 00:50 37.0 C 71 14 133/82 01/13/24 21:49 36.4 C L 68 14 132/81 01/13/24 19:53 78 96 01/13/24 19:48 82 97 01/13/24 19:43 82 97 01/13/24 19:38 83 98 01/13/24 19:33 90 97 01/13/24 19:28 82 97 01/13/24 19:23 72 96 01/13/24 19:18 73 96 01/13/24 19:15 36.7 C 73 18 151/91 H 01/13/24 19:13 72 96 01/13/24 19:08 78 95 01/13/24 19:03 75 95 01/13/24 18:58 72 95 01/13/24 18:53 74 96 01/13/24 18:48 74 95 01/13/24 18:43 82 95 01/13/24 18:38 71 95 01/13/24 18:33 73 95 O2 Del Method 01/14/24 00:50 Room Air 01/13/24 21:49 Room Air 01/13/24 19:53 01/13/24 19:48 01/13/24 19:43 01/13/24 19:38 01/13/24 19:33 01/13/24 19:28 01/13/24 19:23 01/13/24 19:18 01/13/24 19:15 01/13/24 19:13 01/13/24 19:08 01/13/24 19:03 01/13/24 18:58 01/13/24 18:53 01/13/24 18:48 01/13/24 18:43 01/13/24 18:38 01/13/24 18:33 Supervising Physician <Justin Tang MD, FACOG - Last Filed: 01/15/24 10:10> Co-Signing Physician Notes Resident Physician Supervision Note: I was present with Dr. Dr. Masters during the history and exam. I discussed the case with the resident and agree with the findings and plan as documented in the note. Any exceptions or clarifications are listed here: [None] Documented By: Justin Tang MD, FACOG Resident Activity Tracking <Asael Jernigan, - Last Filed: 01/14/24 08:24> Resident Involvement: Resident Care Provided Care Provided: OB Delivery
[2024-01-14 09:24] LABS: Hemoglobin 11.5 g/dl (12.0-16.0); Mean Corpuscular Hemoglobin 28.4 pg (25.0-34.0); Mean Corpuscular Hgb Conc 33.8 g/dL (32.0-36.0); Mean Platelet Volume 12.6 fL (9.4-12.4); Platelet Count 107 K/uL (130-400); RDW Coefficient of Variation 16.5 % (11.5-14.5); RDW Standard Deviation 49.1 fL (36.4-46.3); Red Blood Count 4.05 M/uL (4.20-5.40)
[2024-01-14] MEDS ORDERED: GENTAMICIN CONSULT ACTIVE PRN (09:54)
[2024-01-14] MEDS ORDERED: oxyCODONE/ACETAMINOPHEN 5mg/325mg TAB PO PRN (09:57)
--- NOTE | 2024-01-14 10:01 | Obstetrical Progress Note ---
Date of Service January 14, 2024 Assessment & Plan Admission and Anticipated Discharge Date Admission Date: January 12, 2024 Subjective Called to patient room for abdominal pain. Patient reporting diffuse abdominal pain, worse low pelvis. Is eating/drinking ok, has had bowel movements. Was urinating ok overnight - has not yet urinated for this shift. Minimal bleeding. She is s/p magnesium, s/p hemorrhage and transfusion. On exam, diffusely tender - more tenderness at uterine fundus, abdomen is soft/nondistended. Bleeding scant. Warm to touch, but afebrile. No LE edema. Given her fundal tenderness and instrumentation of uterus, concern for endometritis. Will treat with gent/clinda (she was GBS neg). Will continue to monitor BPs - if remains elevated, may need to consider antihypertensive meds. She is s/p mag. Results & Data Vital Signs (Past 12 Hours) Vital Signs Temp Pulse Resp BP O2 Del Method 01/14/24 09:30 160/84 H 01/14/24 08:45 36.6 C 73 18 151/81 H Room Air 01/14/24 00:50 37.0 C 71 14 133/82 Room Air PG Care Time/CCT Total # of Minutes Spent Total Time Spent with Patient: Total time spent is greater than 50% in coordination of care (as documented) at patient's floor/unit and/or counseling patient: Coding Level of Care Code None
--- NOTE | 2024-01-14 10:22 | Pharmacy Report ---
Pharmacy PK ABX Note - Date of Service January 14, 2024 - Assessment and Plan Assessment 38 year old F receiving gentamicin and clindamycin for concerns for endometritis. Extended interval dosing appropriate for intrapartum/ gentamicin dosing. Plan Gentamicin * 400 mg iv q 24 hours ordered (~5 mg/kg actual body weight) * Levels do not need to be monitored in patients receiving gentamicin 5 mg/kg q 24 hours for short term course (</=72 hours) as long as they have normal renal function (CRCL >100) * If therapy continues >72 hours, will plan to obtain a trough 30 mins prior to next dose Pharmacy will continue to follow and will adjust dose/frequency as necessary. Thank you.
[2024-01-14] MEDS: GENTAMICIN SULFATE 400 MG in DEXTROSE 5% 100 ML IV ONE (11:00)
[2024-01-14] MEDS: CLINDAMYCIN/D5W 900 MG/50 ML BAG IV SCH (11:00)
[2024-01-14] MEDS: NIFEdipine EXTENDED REL 30 MG TABCR PO SCH (16:31)
[2024-01-14] MEDS: NIFEdipine 10 MG CAP PO STA (18:05)
[2024-01-15 00:50] VITALS: TEMP 98.1
--- NOTE | 2024-01-15 05:49 | Obstetrical Progress Note ---
Date of Service <Asael IrvinChip Jernigan - Last Filed: 01/15/24 06:42> January 15, 2024 Assessment & Plan <Asael IrvinChip Rere, DO - Last Filed: 01/15/24 06:42> (1) state: 38yo day 2 following Abdominal pain resolving, VSS ibuprofen for pain as needed Headache has gone away Continue care as tolerated, bottle when necessary Hgb: 13.6 -> 11.5, ferrous sulfate daily upon discharge Possible discharge home today <Quin Mejia, DO - Last Filed: 01/15/24 06:52> (1) state: Subjective <Asael IrvinChip Jernigan DO - Last Filed: 01/15/24 06:42> 38yo day 3 following Ambulation: yes Voiding: urination, no BM Passing gas: a little Diet tolerance: improving, regular Lochia: small Feeding type: breast, bottle when necessary Current pain: mild lower abdominal pain Patient in mild distress this AM, improving from yesterday. Denies fever, body aches, chills, headache, SOB, n/v/d, LE swelling/pain, or numbness/tingling. Physical Exam <Asael IrvinChip Jernigan DO - Last Filed: 01/15/24 06:42> General: A&Ox4, patient in moderate distress, appearing tired Skin: warm, dry, intact HEENT: NC/AT, anicteric sclerae, conjunctive w/o injection Heart: RRR, no m/r/g Lungs: clear to auscultation b/l, equal air entry, no wheezing, rales, rhonchi Abd: hypoactive bowel sounds, generalized abdominal swelling and tenderness to palpation, unable to palpate fundus due to pain, no tenseness or guarding Ext: no erythema, swelling, or tenderness to palpation; Fatoumata's neg, no clubbing or cyanosis Neuro: speech intact, no facial droop, moving all ext on command and spontaneously Results & Data <Asael IrvinChip Jernigan - Last Filed: 01/15/24 06:42> Vital Signs (Past 12 Hours) Vital Signs Temp Pulse Resp BP BP Pulse Ox O2 Del Method 01/15/24 03:45 124/77 01/14/24 23:30 36.7 C 87 16 129/70 97 Room Air 01/14/24 19:35 Room Air 01/14/24 19:35 37 C 80 18 146/80 H 97 Room Air 01/14/24 18:30 36.8 C 74 18 150/80 H Room Air Supervising Physician <Quin Mejia DO - Last Filed: 01/15/24 06:52> Co-Signing Physician Notes Resident Physician Supervision Note: I interviewed and examined the patient. Discussed with Dr. Masters and agree with findings and plan as documented in the note. Any exceptions or clarifications are listed here: PPD#3 doing better. Fundal tenderness improved and feeling much better overall. Has moved to taking ibuprofen and tylenol for pain and not needing percocet. BP stable on Nifedipine XR 30mg. Will plan for DC home. Rx Nifedipine and will come to office for BP check early this coming week. Documented By: Quin Mejia DO Resident Activity Tracking <Asael Jernigan DO - Last Filed: 01/15/24 06:42> Resident Involvement: Resident Care Provided Care Provided: OB Delivery
[2024-01-15 06:20] LABS: Creatinine Clr Calc Pharmacy 140.5 ml/min
[2024-01-15 09:21] VITALS: PULSE 74; RESP 18; O2SAT 98
[2024-01-15] MEDS: GENTAMICIN SULFATE 400 MG in DEXTROSE 5% 100 ML IV SCH (10:16)
[2024-01-15 11:06] VITALS: BP 129/70
== END 2024-01-15 13:57 | disposition home or self-care (01) | DRG 806 ==
LOC: 4S1 07:43 → 4E2 01-13 20:57
DX: O72.1 Other immediate postpartum hemorrhage; Z37.0 Single live birth; R51.9 Headache, unspecified; Z3A.40 40 weeks gestation of pregnancy; O66.0 Obstructed labor due to shoulder dystocia; O90.89 Other complications of the puerperium, not elsewhere classified; O48.0 Post-term pregnancy